=== PATIENT | female | born 1955 | race Caucasian/White ===

== ENCOUNTER 2017-10-02 05:42 | Inpatient (IN) | payer MEDICARE, MEDICAID ==
--- NOTE | 2017-09-26 09:01 | HP ---
HISTORY OF PRESENT ILLNESS: Ms. Reza is a 62-year-old female who presents with neck pain and cerv ical spinal stenosis. She has associated C7 radiculopathy on the right greater than left and has ludy e triceps weakness bilaterally. She has had this pain for about 1.5 years in the pain and her neck i s constant and she frequently gets headaches. She has had some loss of dexterity in her fingers and noticed difficulty when opening jars at home. She has limited range of motion in the neck and she simmons s had [address] Mullins which seemed to help some. She also has low back pain in [facility] she had a fall in 1999, she fell off a chair. She had back surgery in 1999 with a [place] in [facility] [place], and she currently has right greater than left L5 and S1 radiculopathies and signs of justice rogenic claudication and she can only walk about a block before her legs start giving out. She recei adilia several TFESI injections from Dr. Mullins and has given relief of 70%. MRI of the cervical spin e at [facility]. REVIEW OF SYSTEMS: Ten-point review of systems is complete and is otherwise negative unless stated i n the HPI. PAST MEDICAL HISTORY: Neck pain, low back pain, L5 radiculopathy bilaterally. PAST SURGICAL HISTORY: Gallbladder at the age of 37, hysterectomy at age of 45, lumbar spinal surger y in [place] at age 45. FAMILY HISTORY: Father is , diagnosed with cancer. Mother is , diagnosed with cance r. Siblings are alive. SOCIAL HISTORY: Patient is a current smoker. She smokes every day 21-30 cigarettes. She is disable d, , and has 2 children. MEDICATIONS: 1. [place] 10/325 mg tablet 1-2 tablets every 4-6 hours p.r.n. for pain. 2. Fentanyl 50 mcg per hour patch 72-hour 1 patch to skin. 3. Levothyroxine sodium 137 mcg tablet 1 tablet on empty stomach in the morning once a day. 4. Prozac 40 mg capsule 1 capsule in the morning once a day. ALLERGIES: PENICILLIN. PHYSICAL EXAMINATION: HEENT: Normocephalic, atraumatic. Hearing intact. Moist mucous membranes. Trachea is midline. Ey es: Pupils are equal and reactive to light. Extraocular muscles are intact. Sclerae is white, dyan cteric. PSYCHIATRIC: Normal mood and affect. CARDIOVASCULAR/CARDIOPULMONARY: No cyanosis or clubbing noted. Intact pedal pulses bilaterally. MUSCULOSKELETAL: Lower extremities 5/5 strength bilaterally iliopsoas, quadriceps, hamstrings, right tibialis anterior, extensor hallucis longus. Sensory deficits bilaterally in the L5 dermatome. Non tender to palpation of the midline lumbar spine. Upper extremities, 4/5 strength in the bilateral tr iceps, right greater than left. Limited range of motion. Sensory deficits in the C7 right greater t galindo left . RESPIRATORY: Even respirations, good effort. All lung purcell sound clear with no wheezing or crackl es. NEUROLOGIC: Cranial nerves II-XII are grossly intact. Speech is fluent. She answered my questions appropriately. Patient has unsteady gait and station. ASSESSMENT: 1. Cervical radiculopathy and cervical myelopathy. 2. Low back pain. 3. Lumbar radiculopathy. PLAN: Dr. Olsen discussed anterior cervical diskectomy and fusion at C3-C4, C4-C5, and C5-C6. B ecause of her balance and cervical myelopathy, we think decompressing the spinal cord would be her be st option. On flexion and extension x-rays, there is no instability. Dr. Olsen talked to the pa tient about the risks, benefits, alternatives, and expected results from surgery. She would like to go ahead with the surgery and she understands all the risks involved.
[2017-10-01 16:20] VITALS: BMI 29.7
[2017-10-02] MEDS ORDERED: Midazolam HCl 2 mg/2 ml Vial ONE ×3 (06:15→11:14)
[2017-10-02] MEDS ORDERED: Fentanyl 100 MCG/2 ML VIAL ONE ×5 (06:15→12:39)
[2017-10-02] MEDS ORDERED: Clindamycin/D5W 900 mg/50 ml Premix Bag ONE (06:18)
[2017-10-02] MEDS ORDERED: Levofloxacin 500 mg/D5W 100 ml Premix Bag ONE (06:18)
[2017-10-02] MEDS ORDERED: Thrombin 5000 UNITS/5 ML VIAL ONE (06:36)
[2017-10-02] MEDS ORDERED: Sodium Chloride 0.9% 10 ML ONE (06:36)
[2017-10-02 06:43] LABS: Hemoglobin 14.4 g/dL (12.0-16.0); Mean Corpuscular HGB CONC 32.6 g/dL (32.0-36.0); Mean Corpuscular Hemoglobin 32.5 pg (27.0-31.0); Mean Corpuscular Volume 99.7 fl (81.0-99.0); Mean Platelet Volume 9.2 fL (7.4-10.4); Platelet Count 221 thou/uL (130-400); RBC Distribution Width 12.4 % (11.5-14.5); Red Blood Cell (RBC) Count 4.42 mill/uL (4.20-5.40)
[2017-10-02 06:45] LABS: INR-International Normal Ratio 0.9; PTT 27.7 SEC (22.9-36.1); Prothrombin Time 12.3 SEC (12.0-14.7)
[2017-10-02] MEDS ORDERED: Ketamine 50 MG/ML VIAL ONE (07:29)
[2017-10-02] MEDS ORDERED: Fentanyl 250 MCG/5 ML VIAL ONE (08:39)
[2017-10-02] MEDS ORDERED: Morphine Sulfate 2 MG/ML SYRINGE SLOW IVP PRN (11:09)
[2017-10-02] MEDS ORDERED: HYDROmorphone 2 MG/ML VIAL SLOW IVP PRN (11:09)
[2017-10-02] MEDS ORDERED: Promethazine HCl 25 MG/ML VIAL SLOW IVP PRN (11:09)
[2017-10-02] MEDS ORDERED: Meperidine HCl/PF 25 MG/ML VIAL SLOW IVP PRN (11:09)
[2017-10-02] MEDS ORDERED: Acetaminophen/Codeine 30-300mg Tablet PO PRN ×2 (11:44)
[2017-10-02] MEDS ORDERED: Ondansetron HCl/PF 4 MG/2 ML Vial IVP PRN (11:44)
[2017-10-02] MEDS ORDERED: PROVENTIL INHALER 6.7 G (200 INHALATIONS) INH PRN (11:47)
[2017-10-02] MEDS ORDERED: fentaNYL 50 mcg/hour Patch TD SCH (12:00)
[2017-10-02] MEDS ORDERED: Morphine 2 MG/ML SYRINGE SLOW IVP PRN (12:25)
[2017-10-02] MEDS ORDERED: Morphine 4 MG/ML VIAL SLOW IVP PRN (12:30)
[2017-10-02] MEDS ORDERED: Clindamycin/D5W 900 MG in Premix Bag 1 BAG IVPB SCH (14:00)
--- NOTE | 2017-10-02 14:07 | OP ---
DATE OF PROCEDURE: 10/02/2017 SURGEON: Carri Olsen M.D. ANVILSMITH: King Wells PA-C PREOPERATIVE INDICATION: Prevent neurological deterioration. 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 POSTOPERATIVE DIAGNOSES: Cervical spondylitic myelopathy, intervertebral disk disease and spinal shoshana nosis at C3-4, C4-5 and C5-6. OPERATIVE PROCEDURE: Anterior cervical diskectomy, intravertebral arthrodesis, placement of interver tebral biomechanical device, anterior cervical plating C3-4, C4-5, C5-6, local morselized autograft, morselized Allograft, and operating microscope. PREOPERATIVE MEDICATIONS: Levaquin 500 mg IV, clindamycin 900 mg IV. DRAIN NUMBER: Zero. DRAIN TYPE: None. OPERATIVE DICTATION: The patient was brought to the operating room. General endotracheal anesthesia was induced. The patient was carefully positioned supine on the operating table with her head suppo rted by gel-filled donut shaped head rest. A lateral fluoro radiograph was used to plan our incision . The right side of the neck was sterilely prepped and draped. We opened with a 10 blade knife and controlled bleeding with bipolar cautery. We dissected sharply to the platysma and cut this muscle i n line with our incision. We continued our dissection medial to the sternocleidomastoid, lateral to the trachea and esophagus all the way down to the prevertebral space. We placed a marker at C3-4 and took a lateral fluoro radiograph to confirm the levels upon which we were operating. We then elevat ed the longus colli muscles off the anterior surface of C3, C4, C5, and C6. We placed self-retaining lateral retractors under the longus colli muscles and placed a distraction pin at C3 and C4. We dis tracted across the intervening interspace. This interspace had a large anterior osteophyte which was removed in a piecemeal fashion. We then entered the disk space. Using curets and rongeurs, we svetlana adilia the intervertebral disk. We brought the operating microscope into the field. Under microscopic magnification using microsurgical techniques, we removed the remainder of the inter vertebral disk. We accessed the ventral epidural space with a micro curet and used Kerrison rongeurs to remove the posterior osteophytes and posterior longitudinal ligament across the entire interspace from one nerve root all the way to the other. After completion of the diskectomy and osteophytectom y, there was no further compression on the dura. We then prepared the endplates for grafting and diony sured the height of the interspaces to 6 mm. We brought a 6 mm PEEK intervertebral graft into the fi eld. We loaded this with demineralized bone matrix and morselized autograft. The autograft was obta ined from osteophyte bone, which was carefully cleaned of soft tissue attachments, morselized and add ed to demineralized bone matrix as our fusion substrate. With the PEEK graft loaded with bone substr ate we advanced it into the interspace under radiographic guidance to the appropriate depth. We then removed the distraction pin from C3 and removed it all the way to C6. We distracted from the pin at C4-C6 across both of the intervening interspaces and moved our lateral retractors under the longus c olli muscles at C5. We incised both inner spaces, removed the anterior osteophytes and disk contents . We continued under the operating microscope, we removed the remainder of the intervertebral disk a nd the posterior longitudinal ligament. We removed all the posterior osteophytes. At completion of our decompression of the exiting nerve roots on the dura were well decompressed from one foramen all the way to the other at both C4-5 and C5-6. We measured the height of these interspaces to 5 mm each . Two separate 5 mm PEEK grafts were loaded with demineralized bone matrix and morselized autograft and advanced into the interspaces under radiographic guidance to the appropriate depth. We then took the operating microscope out of the field and removed the distraction pins. A 4-5 mm anterior cervi reji plate was brought into the field. We removed osteophytes where the plate would lay smoothly on t he anterior surface of vertebral bodies. We drilled airplane pilot crop dusting holes through the plate into the vertebral segments and affixed the plate using 14 mm screws. We used 6 angle screws at C6 and variable angle screws at C3, C4, and C5. We engaged the locking mechanism over each of the screws. AP and lateral fluoro radiographs confirmed adequate position of instrumentation. We irrigated copiously with bacit racin irrigation. Hemostasis was excellent. We closed the wound in anatomic layers and applied a st erile dressing. This was a clean case and no contamination.
[2017-10-02] MEDS ORDERED: PHENYLEPHRINE-NS 100 MCG/ML 10 ML SYRINGE ONE (15:16)
[2017-10-02] MEDS ORDERED: PROPOFOL 200 MG/20 ML VIAL ONE (15:16)
[2017-10-02] MEDS ORDERED: Dexamethasone 20 MG/5 ML VIAL ONE (15:16)
[2017-10-02] MEDS ORDERED: Glycopyrrolate 0.2 MG/ML 5 ML SYRINGE ONE (15:16)
[2017-10-02] MEDS ORDERED: Ondansetron HCl/PF 4 MG/2 ML Vial ONE (15:16)
[2017-10-02] MEDS ORDERED: ePHEDrine/0.9% NaCl/PF SYRINGE 50 mg/10 ml ONE (15:16)
[2017-10-02] MEDS ORDERED: Lidocaine 1% PF 5 ML VIAL ONE (15:16)
[2017-10-02] MEDS: HYDROcodone/Acetaminophen 10/325 mg Tablet PO SCH ×5 (15:37→22:11)
[2017-10-02] MEDS: Sodium Chloride 0.9% 1,000 ML IV SCH ×2 (15:37→20:51)
[2017-10-02] MEDS: tiZANidine HCl 4 MG TAB PO PRN ×2 (15:45→21:47)
[2017-10-02] MEDS ORDERED: Morphine 5 mg/5 ml in 0.9% NaCl/PF SYRINGE SLOW IVP PRN (15:45)
[2017-10-02] MEDS: Clindamycin/D5W 900 MG in Premix Bag 1 BAG IVPB SCH ×2 (16:11→23:46)
[2017-10-02] MEDS: Mometasone/Formoterol 120 PUFF INHALER INH SCH (21:27)
[2017-10-03] MEDS ORDERED: Levothyroxine Sodium 25 MCG TAB PO SCH (06:00)
[2017-10-03] MEDS ORDERED: Levothyroxine Sodium 112 MCG TAB PO SCH (06:00)
[2017-10-03] MEDS: HYDROcodone/Acetaminophen 10/325 mg Tablet PO SCH (06:15)
--- NOTE | 2017-10-03 07:16 | DIS ---
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 DISCHARGE CONDITION: The patient is stable. CONSULTATIONS: Physical Therapy. PROCEDURES: Anterior cervical diskectomy, intervertebral arthrodesis, placement of intervertebral bi omechanical device and anterior cervical plating of C3-4, C4-5, C5-6. All imaging studies were taken intraoperatively. HISTORY OF PRESENT ILLNESS: Ms. Reza is a 62-year-old female that presents with neck pain and cer vical spinal stenosis. She has associated C7 radiculopathies on the right greater than left and had some tricep weakness bilaterally. She has limited range of motion of the neck and has several GRACE in jections with Dr. Mullins which seemed to help some. She constantly gets headaches whenever she put s her head into extension and she has loss of dexterity in her fingers and has noticed weakness in he r fingers when opening jars at home. She opted for neurosurgical intervention after there was an MRI that showed spinal stenosis and compr ession of the spinal cord at C3-C6. HOSPITAL COURSE: Hospital course was unremarkable. The patient has been able to ambulate, use the r estroom, have a bowel movement and urinate. She has been able to tolerate regular diet and her pain is well controlled with pain medication. Dr. Mullins is her pain management doctor in [place] as she has set her up with pain medications postoperatively. DISCHARGE PHYSICAL EXAMINATION: HEENT: Normocephalic, atraumatic. Hearing intact. Moist mucous membranes. Trachea is midline. EYES: Pupils are equal and reactive to light. Extraocular muscles are intact. Sclerae is white, no nicteric. CARDIOVASCULAR: The patient has regular rate and rhythm, normal S1, S2 heart sounds. RESPIRATORY: The patient has bilateral symmetric chest rise appears to have no shortness breath. NEUROLOGIC: Cranial nerves II-XII were grossly intact. Speech is fluent. She answers my questions appropriately. DISCHARGE HOME MEDICATIONS: Include aspirin, Ventolin, levothyroxine, sodium, fentanyl patch, hydroc odone 10/325, fluticasone and fluoxetine HCL. We will hold aspirin for a minimum of 3 weeks postoper atively. The patient will be sent home with Tylenol #3 and tizanidine.
[2017-10-03] MEDS: Mometasone/Formoterol 120 PUFF INHALER INH SCH (07:40)
[2017-10-03 08:04] VITALS: BP 103/54; TEMP 97.6
[2017-10-03] MEDS ORDERED: FLUoxetine HCl 20 MG CAP PO SCH (09:00)
--- NOTE | 2017-10-03 10:08 | PRG ---
DATE OF SERVICE: 10/03/2017 Ms. Reza was seen this morning in her hospital room. She is 1 day out from a 3-level ACDF for mye lopathy. Her hands feel better and her balance is reasonable with getting to the bathroom. She feel s she is improved since surgery. There is tightness at the base of her neck. I do not find any new neurological deficit. I asked Ms. Reza to wear the collar when she is up and out of bed. She does not need to sleep in it, eat in it or shower in it. When she is up and around I would like her to have an extra resource to provide stability to her neck as it heals from this 3 level ACDF. We are going to check her incision at 2 weeks. The tightness at the base of her neck will get better in the course of a few weeks, most likely. She knows to call her office for any concerns. A follow up has already been arranged.
--- NOTE | 2017-10-26 16:32 | EKG ---
Test Reason : PREOP Blood Pressure : / mmHG Vent. Rate : 067 BPM Atrial Rate : 067 BPM P-R Int : 128 ms QRS Dur : 082 ms QT Int : 444 ms P-R-T Axes : 063 021 036 degrees QTc Int : 469 ms Normal sinus rhythm Normal ECG No previous ECGs available Confirmed by DR. Constantine PLASENCIA ([id number]) on 10/26/2017 4:32:29 PM Referred By: HOME Confirmed By:DR. Constantine PLASENCIA
== END 2017-10-03 09:40 | disposition home or self-care (01) | DRG 472 ==
LOC: SURG A 05:42 → 3SE 15:32
PROVIDERS: ADMIT Neurological Surgery; ATTEND Neurological Surgery
PROC: 0RT30ZZ Resection of Cervical Vertebral Disc, Open Approach (ICD-10-PCS; principal; 2017-10-02)
PROC: 0RG20A0 Fusion of 2 or more Cervical Vertebral Joints with Interbody Fusion Device, Anterior Approach, Anterior Column, Open Approach (ICD-10-PCS; 2017-10-02)
DX: M48.02 Spinal stenosis, cervical region (principal); M47.12 Other spondylosis with myelopathy, cervical region; M54.12 Radiculopathy, cervical region; F17.210 Nicotine dependence, cigarettes, uncomplicated; Z88.0 Allergy status to penicillin; M54.16 Radiculopathy, lumbar region
CPT/HCPCS: 76001; 85027; 85610; 85730; 93005; 93010; A4216; C1713; C1776; J1100; J1956; J2001; J2250; J2270; J2405; J2704; J3010; J3490